=== PATIENT | male | born 1995 | race Caucasian/White ===

== ENCOUNTER 2017-06-10 03:50 | Emergency (ER) | payer BC ==
[2017-06-10] MEDS ORDERED: IV NORMAL SALINE 1,000ML 1,000 ML IV ONE (04:15)
[2017-06-10] MEDS ORDERED: KETOROLAC 30 MG/ML VIAL. IV ONE (04:15)
[2017-06-10] MEDS ORDERED: ACETAMINOPHEN 325 MG TABLET PO ONE (04:15)
[2017-06-10] MEDS ORDERED: ONDANSETRON PF 4 MG/2 ML VIAL. IV ONE (04:15)
[2017-06-10 04:23] LABS: BASO # 0.1 x10^3/uL (0.0-0.2); BASO % 1 % (0-3); EOS # 0.2 x10^3/uL (0.0-0.7); EOS % 1 % (0-3); HEMATOCRIT 49.3 % (39.0-53.0); LYMPH # 1.5 x10^3/uL (1.0-4.8); LYMPH % 11 % (24-48); MEAN CORPUSCULAR HEMOGLOBIN 32 pg (25-35); MEAN CORPUSCULAR HGB CONC 34 g/dL (31-37); MEAN CORPUSCULAR VOLUME 93 fL (79-100); MONO # 1.3 x10^3/uL (0.0-1.1); MONO % 9 % (0-9); NEUT # 10.9 x10^3uL (1.8-7.7); NEUT % 79 % (31-73); PLATELET COUNT 243 x10^3/uL (140-400); RED BLOOD COUNT 5.29 x10^6/uL (4.30-5.70); RED CELL DISTRIBUTION WIDTH 12.3 % (11.5-14.5); WHITE BLOOD COUNT 13.8 x10^3/uL (4.0-11.0)
--- NOTE | 2017-06-10 04:23 | EKG ---
[address] [address] Test Date: 2017-06-10 Test Time: 04:02:26 Pat Name: DESTINY AMIN Department: Room: Gender: M Ciaio Lumite Injector: MONI : 1995 Requested By: ANA AGUILAR Order Number: [id number] Reading MD: Dannie Alston MD Measurements Intervals Horatio Rate: 103 P: 27 IL: 136 QRS: 53 QRSD: 100 T: 26 QT: 322 QTc: 424 Interpretive Statements SINUS TACHYCARDIA Electronically Signed On 06-10-2017 16:12:59 [employer] PROFESSOR by Dannie Alston MD
[2017-06-10 04:33] LABS: ALBUMIN 4.6 g/dL (3.4-5.0); ALBUMIN/GLOBULIN RATIO 1.2 (1.0-1.7); CALCIUM 9.2 mg/dL (8.5-10.1); GFR 93.4; POTASSIUM 3.7 mmol/L (3.5-5.1); TOTAL BILIRUBIN 0.6 mg/dL (0.2-1.0); TOTAL PROTEIN 8.3 g/dL (6.4-8.2)
[2017-06-10 04:57] LABS: BACTERIA,URINE FEW /HPF (0-FEW); BILIRUBIN,URINE NEG (NEG); CLARITY,URINE CLEAR; COLOR,URINE YELLOW; GLUCOSE,URINE NEG (NEG); NITRITE,URINE NEG (NEG); RBC,URINE 0 /HPF (0-2); UROBILINOGEN,URINE 0.2 mg/dL (0.2 mg/dL)
[2017-06-10 05:05] LABS: INFLUENZA A PATIENT NEGATIVE (NEGATIVE); INFLUENZA B PATIENT NEGATIVE (NEGATIVE)
[2017-06-10 05:10] LABS: MONONUCLEOSIS PATIENT NEGATIVE (NEGATIVE)
[2017-06-10] MEDS ORDERED: cefTRIAXone SODIUM 1 GM VIAL IV ONE (05:42)
[2017-06-10] MEDS ORDERED: IV NORMAL SALINE 50ML 50 ML ONE (05:43)
[2017-06-10] MEDS ORDERED: AZITHROMYCIN 250 MG TABLET. PO ONE (05:45)
[2017-06-10 06:21] VITALS: BP 121/54
[2017-06-10] MEDS ORDERED: ONDA4TAB10 SL (06:24)
[2017-06-10] MEDS ORDERED: AZIT250T PO (06:24)
[2017-06-10] MEDS ORDERED: IBUP600T16 PO (06:24)
[2017-06-10] MEDS ORDERED: AMOX500C PO (06:24)
--- NOTE | 2017-06-10 06:24 | PHYS DOC ---
Past History Past Medical History: No Pertinent History Past Surgical History: No Surgical History Alcohol Use: Occasionally Drug Use: None Adult General Chief Complaint Chief Complaint: SHORTNESS OF BREATH HPI HPI Patient is a 22-year-old gentleman who presents here today secondary to cough congestion or fevers. Patient reports he woke up and felt like his whole body was aching him. Patient reports she's had nonproductive cough for one to 2 days. Patient has a sore throat. Patient reports she is nauseous. Denies any vomiting or diarrhea. No abdominal pain. No dysuria frequency urgency. Patient reports that everything and his body hurts. Patient feels like his chest was heavy and he woke up this morning. Patient reports she has a history significant for peptic ulcer disease. No hypertension diabetes lung liver or kidney problems. Patient reports she smokes tobacco. Patient drink alcohol. Patient reports his last was earlier today. Review of systems: Constitutional: Positive for fevers home. Eyes: Denies change in visual acuity, redness, or eye pain HENT: Positive for nasal congestion. All other systems were reviewed and found to be within normal limits, except as documented in this note. Physical exam Constitutional: Well developed, well nourished, no acute distress, non-toxic appearance. HENT: Normocephalic, atraumatic, bilateral external ears normal, oropharynx moist, no oral exudates, nose normal. Eyes: PERRLA, EOMI, conjunctiva normal, no discharge. Neck: Normal range of motion, no tenderness, supple, no stridor. No nuchal rigidity. No Kernig's or Buczynski signs. No signs or symptoms consistent with meningitis. Cardiovascular:Heart rate regular rhythm, Lungs & Thorax: Lungs clear without any wheezing rales or rhonchi. Abdomen: Bowel sounds normal, soft, no tenderness, no masses, no pulsatile masses. Skin: Warm, dry, no erythema, no rash. Back: No tenderness, no CVA tenderness. Extremities: No tenderness, no cyanosis, no clubbing, ROM intact, no edema. Neurologic: Alert and oriented X 3, normal motor function, normal sensory function, no focal deficits noted. Psychologic: Affect normal, judgement normal, mood normal. Assessment and plan: 1. Pneumonia: Patient had a chest x-ray obtained which revealed bilateral infiltrates greatest in the left lower lobe. Patient was started on Zithromax and amoxicillin. Patient given IV fluids Motrin and Tylenol and feels much better. Patient be discharged home in stable condition with strict precautions to see his primary care physician in 24 hours for reevaluation. Patient was instructed that if he is unable see his doctor within 24 hours that he must return to the ER for reevaluation in the ED. Patient's clinically hemodynamically stable. Patient's pulse ox is 99%. Patient's white count was slightly elevated. Patient's lactic acid level was normal. Patient is stable for outpatient treatment with close outpatient follow-up. No indication for inpatient antibiotics at this time. Current Medications Medications (Trade) Dose Ordered Sig/Yuri Route PRN Reason Start Time Stop Time Status Last Admin Dose Admin Ondansetron HCl (Zofran) 4 mg 1X ONCE IV 06/10/17 04:15 06/10/17 05:25 DC 06/10/17 04:28 Ketorolac Tromethamine (Toradol) 30 mg 1X ONCE IV 06/10/17 04:15 06/10/17 05:25 DC 06/10/17 04:29 Sodium Chloride 1,000 ml @ 1,000 mls/hr 1X ONCE IV 06/10/17 04:15 06/10/17 05:25 DC 06/10/17 04:28 Acetaminophen (Tylenol) 650 mg 1X ONCE PO 06/10/17 04:15 06/10/17 05:25 DC 06/10/17 04:29 Azithromycin (Zithromax) 500 mg 1X ONCE PO 06/10/17 05:45 06/10/17 05:55 DC 06/10/17 05:45 Ceftriaxone Sodium 1 gm/ Sodium Chloride 50 ml @ 100 mls/hr 1X ONCE IV 06/10/17 05:45 06/10/17 06:14 DC 06/10/17 05:47 Ceftriaxone Sodium (Rocephin) 1 gm STK-MED ONCE IV 06/10/17 05:42 06/10/17 05:43 DC Sodium Chloride 50 ml @ As Directed STK-MED ONCE .ROUTE 06/10/17 05:43 06/10/17 05:44 DC Current Medications Current Medications Current Medications Medications (Trade) Dose Ordered Sig/Yuri Start Time Stop Time Status Last Admin Dose Admin Acetaminophen (Tylenol) 650 mg 1X ONCE 06/10/17 04:15 06/10/17 05:25 DC 06/10/17 04:29 650 MG Azithromycin (Zithromax) 500 mg 1X ONCE 06/10/17 05:45 06/10/17 05:55 DC 06/10/17 05:45 500 MG Ceftriaxone Sodium 1 gm/ Sodium Chloride 50 ml @ 100 mls/hr 1X ONCE 06/10/17 05:45 06/10/17 06:14 DC 06/10/17 05:47 100 MLS/HR Ceftriaxone Sodium (Rocephin) 1 gm STK-MED ONCE 06/10/17 05:42 06/10/17 05:43 DC Ketorolac Tromethamine (Toradol) 30 mg 1X ONCE 06/10/17 04:15 06/10/17 05:25 DC 06/10/17 04:29 30 MG Ondansetron HCl (Zofran) 4 mg 1X ONCE 06/10/17 04:15 06/10/17 05:25 DC 06/10/17 04:28 4 MG Sodium Chloride 50 ml @ As Directed STK-MED ONCE 06/10/17 05:43 06/10/17 05:44 DC Allergies Allergies Allergies Coded Allergies Type Severity Reaction Last Updated Verified Penicillins Allergy Unknown 06/10/17 Yes Current Patient Data Vital Signs Vital Signs Date Time Temp Pulse Resp B/P (MAP) Pulse Ox O2 Delivery O2 Flow Rate FiO2 06/10/17 05:51 100.1 83 20 117/70 (86) 100 Room Air Lab Results Laboratory Tests Test 06/10/17 04:10 06/10/17 04:20 06/10/17 04:25 06/10/17 04:35 White Blood Count 13.8 x10^3/uL (4.0-11.0) H Red Blood Count 5.29 x10^6/uL (4.30-5.70) Hemoglobin 17.0 g/dL (13.0-17.5) Hematocrit 49.3 % (39.0-53.0) Mean Corpuscular Volume 93 fL (79-100) Mean Corpuscular Hemoglobin 32 pg (25-35) Mean Corpuscular Hemoglobin Concent 34 g/dL (31-37) Red Cell Distribution Width 12.3 % (11.5-14.5) Platelet Count 243 x10^3/uL (140-400) Neutrophils (%) (Auto) 79 % (31-73) H Lymphocytes (%) (Auto) 11 % (24-48) L Monocytes (%) (Auto) 9 % (0-9) Eosinophils (%) (Auto) 1 % (0-3) Basophils (%) (Auto) 1 % (0-3) Neutrophils # (Auto) 10.9 x10^3uL (1.8-7.7) H Lymphocytes # (Auto) 1.5 x10^3/uL (1.0-4.8) Monocytes # (Auto) 1.3 x10^3/uL (0.0-1.1) H Eosinophils # (Auto) 0.2 x10^3/uL (0.0-0.7) Basophils # (Auto) 0.1 x10^3/uL (0.0-0.2) Sodium Level 138 mmol/L (136-145) Potassium Level 3.7 mmol/L (3.5-5.1) Chloride Level 102 mmol/L (98-107) Carbon Dioxide Level 25 mmol/L (21-32) Anion Gap 11 (6-14) Blood Urea Nitrogen 11 mg/dL (8-26) Creatinine 1.0 mg/dL (0.7-1.3) Estimated GFR (Cockcroft-Gault) 93.4 BUN/Creatinine Ratio 11 (6-20) Glucose Level 97 mg/dL (70-99) Lactic Acid Level 0.9 mmol/L (0.4-2.0) Calcium Level 9.2 mg/dL (8.5-10.1) Total Bilirubin 0.6 mg/dL (0.2-1.0) Aspartate Amino Transferase (AST) 18 U/L (15-37) Alanine Aminotransferase (ALT) 23 U/L (16-63) Alkaline Phosphatase 109 U/L (46-116) Troponin I Quantitative < 0.017 ng/mL (0-0.055) Total Protein 8.3 g/dL (6.4-8.2) H Albumin 4.6 g/dL (3.4-5.0) Albumin/Globulin Ratio 1.2 (1.0-1.7) Heterophil Agglutinins Negative (NEGATIVE) Influenza Type A (Rapid) Negative (NEGATIVE) Influenza Type B (Rapid) Negative (NEGATIVE) Urine Collection Type Unknown Urine Color Yellow Urine Clarity Clear Urine pH 6.5 Urine Specific [place] 1.010 Urine Protein Neg (NEG-TRACE) Urine Glucose (UA) Neg mg/dL (NEG) Urine Ketones (Stick) Neg mg/dL (NEG) Urine Blood Neg (NEG) Urine Nitrite Neg (NEG) Urine Bilirubin Neg (NEG) Urine Urobilinogen Dipstick 0.2 mg/dL (0.2 mg/dL) Urine Leukocyte Esterase Trace (NEG) Urine RBC 0 /HPF (0-2) Urine WBC 1-4 /HPF (0-4) Urine Squamous Epithelial Cells None /LPF Urine Bacteria Few /HPF (0-FEW) Group A Streptococcus Rapid Negative (NEGATIVE) EKG EKG [] Radiology/Procedures Radiology/Procedures [] Course & Med Decision Making Course & Med Decision Making Pertinent Labs and Imaging studies reviewed. (See chart for details) [] Dragon Disclaimer Dragon Disclaimer This electronic medical record was generated, in whole or in part, using a voice recognition dictation system. Departure Departure: Impression: Primary Impression: Pneumonia Disposition: 01 HOME, SELF-CARE Condition: IMPROVED Referrals: RABIA OLEARY (PCP) Patient Instructions: Pneumonia, Adult Scripts Ondansetron (ZOFRAN ODT) 4 Mg Tab.rapdis 1 TAB SL Q8HRS for NAUSEA, #15 TAB Prov: ANA GAUILAR MD 06/10/17 Azithromycin (ZITHROMAX) 250 Mg Tablet 1 PKG PO UD, #1 PKG Prov: ANA AGUILAR MD 06/10/17 Ibuprofen (IBUPROFEN) 600 Mg Tablet 600 MG PO QID Y for PAIN, #20 Prov: ANA AGUILAR MD 06/10/17 Amoxicillin (AMOXICILLIN) 500 Mg Capsule 1 CAP PO TID, #30 CAP Prov: ANA AGUILAR MD 06/10/17 ANA AGUILAR MD Jun 10, 2017 06:24
--- NOTE | 2017-06-10 07:03 | RAD ---
Chest radiograph Two Views 06/10/2017 Clinical indication: Fever, cough Comparison: Chest 11/03/2012 Findings: There are patchy airspace opacities in the right lower lobe. No pleural effusion, pneumothorax. Cardiac and mediastinal silhouettes are within normal limits. Impression: Patchy airspace opacities in the right lower lobe concerning for pneumonia. Follow-up 2 view chest radiograph is recommended to assess for resolution.
== END 2017-06-10 06:30 | disposition home or self-care (01) ==
LOC: ER 03:50
DX: J18.9 Pneumonia, unspecified organism (principal); Z88.0 Allergy status to penicillin
CPT/HCPCS: 36415; 71020; 80053; 81001; 83605; 84484; 85025; 86308; 87070; 87086; 87804; 87880; 93005; 96361; 96365; 96375; 99285; J0456; J0696; J1885; J2405; J7030